=== PATIENT | male | born 1990 | race Caucasian/White ===

== ENCOUNTER 2018-02-19 13:49 | Inpatient (IN) ==
--- NOTE | 2018-02-19 14:03 | ED ---
Triage General Time Seen by Provider: 02/19/18 14:02 History of Present Illness HPI narrative: 27 y/o male complaining of suicidal and homicidal thoughts for one day. Reports he ran out of his xanax last month. Seen at triage desk awaiting bed placement. Allergies Allergies Allergy/AdvReac Type Severity Reaction Status Date / Time No Known Allergies Allergy Uncoded 10/23/12 13:31 Vital Signs Recall Vital Signs: Initial Documented Vital Signs Temperature 98.3 F 02/19/18 13:59 Pulse Rate 68 02/19/18 13:59 Respiratory Rate 14 02/19/18 13:59 Blood Pressure 135/65 02/19/18 13:59 Pulse Oximetry 98 02/19/18 13:59 Last Documented Vital Signs Temperature 98.3 F 02/19/18 13:59 Pulse Rate 68 02/19/18 13:59 Respiratory Rate 14 02/19/18 13:59 Blood Pressure 135/65 02/19/18 13:59 Pulse Oximetry 98 02/19/18 13:59 Vital Signs 3 l l l l 02/19/18 13:59 l l 02/19/18 13:59 l l Height 162.56 cm l l Weight 54.431 kg l l BMI 20.5 l l BP 135/65 l l Blood Pressure Location l l Position Sitting l l Respiration 14 l l Pulse 68 l l Pulse Source l l Temp 98.3 F l l Temp Source Oral l l Pulse Oximetry (%) 98 l l Oxygen Delivery Method l l Oxygen Flow Rate l l Comment PMFSH Social History Social History Recent Travel in [facility] within the Last 8 Weeks: No Recent Out of Country Travel within the Last 8 Weeks: No
--- NOTE | 2018-02-19 15:15 | ED ---
HPI General Chief Complaint: Psychiatric Symptoms Stated Complaint: psych eval Time Seen by Provider: 02/20/18 10:58 Source: patient Mode of arrival: ambulatory Limitations: no limitations History of Present Illness HPI Narrative: Patient is a 27-year-old male who presents to the emergency room for evaluation. Patient reports that he has been feeling suicidal as his family member keeps on telling him that he stop using drugs. Patient reports that the only drugs he uses marijuana, reports that his family member is convinced that he is taking methamphetamines. Patient reports that he is fed up by this verbal abuse and feels suicidal. Reports that he would use a knife to commit suicide if needed. Patient denies any homicidal ideation. Patient presents to the emergency room voluntary for psychiatric evaluation. Related Data Home Medications Medication Instructions Recorded Confirmed No Known Home Medications 02/19/18 02/19/18 Previous Rx's Medication Instructions Recorded quetiapine 100 mg PO HS 15 Days #15 tab 02/23/18 Allergies Allergy/AdvReac Type Severity Reaction Status Date / Time No Known Allergies Allergy Unverified 02/19/18 14:51 Review of Systems ROS: all other systems reviewed are negative PMFSH History History Provided By: Patient Medical History Medical History Clinical neurofibromatosis (Acute) Bipolar disorder (Acute) Depression (Acute) History of anxiety (Acute) History of suicidal ideation (Acute) Legally blind (Acute) Surgical History Surgical History History of adenoidectomy (Acute) History of appendectomy (Acute) History of back surgery (Acute) History of tonsillectomy (Acute) Social History Social History Substance History: Active Abuse Second Hand Smoke Exposure: Yes Smoking Status: Heavy tobacco smoker Tobacco Type: Cigarettes How Often Do You Have a Drink Containing Alcohol: Monthly or less Recent Travel in [place] within the Last 8 Weeks: No Recent Out of Country Travel within the Last 8 Weeks: No Exam Narrative Exam Narrative: GENERAL: Well-nourished, well-developed patient. GENERAL: NAD SKIN: Focused skin assessment warm/dry. HEAD: Atraumatic. Normocephalic. EYES: Pupils equal and round. No scleral icterus. No injection or drainage. ENT: No nasal bleeding or discharge. Mucous membranes pink and moist. NECK: Trachea midline. No JVD. CARDIOVASCULAR: Regular rate and rhythm. No murmur appreciated. RESPIRATORY: No accessory muscle use. Clear to auscultation. Breath sounds equal bilaterally. GASTROINTESTINAL: Abdomen soft, non-tender, nondistended. Hepatic and splenic margins not palpable. MUSCULOSKELETAL: No obvious deformities. No clubbing. No cyanosis. No edema. NEUROLOGICAL: Awake and alert. No obvious cranial nerve deficits. Motor grossly within normal limits. Normal speech. PSYCHIATRIC: Anxious mood and affect; +SI -HI Course Initial Documented Vital Signs Temperature 98.3 F 02/19/18 13:59 Pulse Rate 68 02/19/18 13:59 Respiratory Rate 14 02/19/18 13:59 Blood Pressure 135/65 02/19/18 13:59 Pulse Oximetry 98 02/19/18 13:59 Last Documented Vital Signs Temperature 98.1 F 02/23/18 05:32 Pulse Rate 60 02/23/18 05:32 Respiratory Rate 16 02/23/18 05:32 Blood Pressure 116/65 02/23/18 05:32 Pulse Oximetry 94 L 02/23/18 05:32 Sign Out Sign Out Data: Patient Sign Out occurred on 02/19/18 at 18:19. Patient's care was discussed, and care was transferred from Salima Bishop to Xu Mcknight MD. Sign Out Comment: patient pending lab work and psych screening Last updated by Salima Bishop at 02/19/18 16:53 Medical Decision Making MDM Narrative Medical decision making narrative: Psychiatric screening labs were ordered, once medically cleared, will have patient seen by psychiatric screeners Medical Screen Exam Complete: Yes Emergency Medical Condition: Yes Differential Diagnosis Differential Diagnosis: depression, suicidal idealation, drug abuse, bipolar disorder Medical Records Medical records reviewed: Yes I reviewed the patient's medical records. Lab Data Lab results reviewed: Yes I reviewed the patient's lab results. Lab results narrative: There is mild elevation in BUN creatinine. Urine drug screen shows cannabinoids. There is no alcohol or drugs otherwise. TSH is normal. The patient is medically clear for evaluation by psychiatry service. I do not believe the presentation is consistent with symptoms organic disease or acute medical abnormality. Result diagrams: 02/19/18 15:48 02/21/18 05:56 Lab Results 02/19/18 02/19/18 02/19/18 Range/Units 15:48 15:48 16:04 WBC 8.3 (4.0-11.0) th/mm3 RBC 4.77 (4.50-5.90) mil/mm3 Hgb 14.8 (13.0-17.0) gm/dL Hct 43.1 (39.0-51.0) % MCV 90.3 (80.0-100.0) fL MCH 31.0 (27.0-34.0) pg MCHC 34.3 (32.0-36.0) % RDW 13.9 (11.6-17.2) % Plt Count 120 L (150-450) th/mm3 MPV 10.4 (7.0-11.0) fL Neut % (Auto) 66.7 (16.0-70.0) % Lymph % (Auto) 23.3 (9.0-44.0) % [place] % (Auto) 6.4 (0.0-8.0) % Eos % (Auto) 3.0 (0.0-4.0) % Baso % (Auto) 0.6 (0.0-2.0) % Neut # (Auto) 5.5 (1.8-7.7) th/mm3 Lymph # (Auto) 1.9 (1.0-4.8) th/mm3 [place] # (Auto) 0.5 (0.0-0.9) th/mm3 Eos # (Auto) 0.2 (0.0-0.4) th/mm3 Baso # (Auto) 0.0 (0.0-0.2) th/mm3 WBC Differential . Differential Comment Auto diff final Sodium 141 (136-145) meq/L Potassium 3.6 (3.5-5.1) meq/L Chloride 108 H (98-107) meq/L Carbon Dioxide 25.2 (21.0-32.0) meq/L Anion Gap 8 (5-15) meq/L BUN 20 H (7-18) mg/dL Creatinine 0.80 (0.60-1.30) mg/dL Estimated GFR Greater than 89 (>89) mL/min Random Glucose 72 L (74-106) mg/dL Hemoglobin A1c (4.3-6.0) % Calcium 8.5 (8.5-10.1) mg/dL Total Bilirubin 0.6 (0.2-1.0) mg/dL AST 14 L (15-37) U/L ALT 25 (12-78) U/L Alkaline Phosphatase 78 (45-117) U/L Total Protein 6.9 (6.4-8.2) g/dL Albumin 4.0 (3.4-5.0) g/dL Triglycerides (42-150) mg/dL Cholesterol (120-200) mg/dL LDL Cholesterol, Calc (0-99) mg/dL HDL Cholesterol (40.0-60.0) mg/dL Cholesterol/HDL Ratio Ratio TSH 1.200 (0.358-3.740) uIU/mL Urine Opiates Screen Neg (Neg) Ur Barbiturates Screen Neg (Neg) Ur Amphetamines Screen Neg (Neg) U Benzodiazepines Scrn Neg (Neg) Urine Cocaine Screen Neg (Neg) U Cannabinoids Screen Pos H (Neg) Serum Alcohol Less than 3 (0-5) mg/dL 02/21/18 02/21/18 Range/Units 05:56 05:56 WBC (4.0-11.0) th/mm3 RBC (4.50-5.90) mil/mm3 Hgb (13.0-17.0) gm/dL Hct (39.0-51.0) % MCV (80.0-100.0) fL MCH (27.0-34.0) pg MCHC (32.0-36.0) % RDW (11.6-17.2) % Plt Count (150-450) th/mm3 MPV (7.0-11.0) fL Neut % (Auto) (16.0-70.0) % Lymph % (Auto) (9.0-44.0) % [place] % (Auto) (0.0-8.0) % Eos % (Auto) (0.0-4.0) % Baso % (Auto) (0.0-2.0) % Neut # (Auto) (1.8-7.7) th/mm3 Lymph # (Auto) (1.0-4.8) th/mm3 [place] # (Auto) (0.0-0.9) th/mm3 Eos # (Auto) (0.0-0.4) th/mm3 Baso # (Auto) (0.0-0.2) th/mm3 WBC Differential Differential Comment Sodium 142 (136-145) meq/L Potassium 3.5 (3.5-5.1) meq/L Chloride 105 (98-107) meq/L Carbon Dioxide 27.5 (21.0-32.0) meq/L Anion Gap 10 (5-15) meq/L BUN 18 (7-18) mg/dL Creatinine 0.79 (0.60-1.30) mg/dL Estimated GFR Greater than 89 (>89) mL/min Random Glucose 78 (74-106) mg/dL Hemoglobin A1c 5.1 (4.3-6.0) % Calcium 8.9 (8.5-10.1) mg/dL Total Bilirubin (0.2-1.0) mg/dL AST (15-37) U/L ALT (12-78) U/L Alkaline Phosphatase (45-117) U/L Total Protein (6.4-8.2) g/dL Albumin (3.4-5.0) g/dL Triglycerides 82 (42-150) mg/dL Cholesterol 147 (120-200) mg/dL LDL Cholesterol, Calc 85 (0-99) mg/dL HDL Cholesterol 45.7 (40.0-60.0) mg/dL Cholesterol/HDL Ratio 3.21 Ratio TSH (0.358-3.740) uIU/mL Urine Opiates Screen (Neg) Ur Barbiturates Screen (Neg) Ur Amphetamines Screen (Neg) U Benzodiazepines Scrn (Neg) Urine Cocaine Screen (Neg) U Cannabinoids Screen (Neg) Serum Alcohol (0-5) mg/dL Discharge Plan Discharge Disposition Patient Disposition: 07 Against Medical Advice Discharge Order Discharge Orders: AMA Discharge (Routine); Ordered 02/23/18 Ordered By: Jl Aldridge Discharge Details Anticipated Discharge Date: 02/23/18 Physicians Team ED Provider: Xu Mcknight Primary Care Provider: Primary Care Martha Eric Attending Provider: Jl Aldridge Status ED Status: Left Department Discharge Information Discharge Date/Time: 02/23/18 14:13
[2018-02-19 17:10] LABS: Baso % (Auto) 0.6 % (0.0-2.0); Eos # (Auto) 0.2 th/mm3 (0.0-0.4); Hematocrit 43.1 % (39.0-51.0); Hemoglobin 14.8 gm/dL (13.0-17.0); Lymph # (Auto) 1.9 th/mm3 (1.0-4.8); Lymph % (Auto) 23.3 % (9.0-44.0); Mean Corpuscular HGB Conc 34.3 % (32.0-36.0); Mean Corpuscular Volume 90.3 fL (80.0-100.0); Mean Platelet Volume 10.4 fL (7.0-11.0); Mono # (Auto) 0.5 th/mm3 (0.0-0.9); Mono % (Auto) 6.4 % (0.0-8.0); Neut # (Auto) 5.5 th/mm3 (1.8-7.7); Neut % (Auto) 66.7 % (16.0-70.0); Platelet Count 120 th/mm3 (150-450); Red Blood Count 4.77 mil/mm3 (4.50-5.90); Red Cell Distribution Width 13.9 % (11.6-17.2); White Blood Count 8.3 th/mm3 (4.0-11.0)
[2018-02-19 17:11] LABS: Amphetamine Screen,Urine Neg (Neg); Barbiturate Screen,Urine Neg (Neg); Cannabinoid Screen,Urine Pos (Neg); Cocaine Screen,Urine Neg (Neg)
[2018-02-19 17:13] LABS: Opiate Screen,Urine Neg (Neg)
[2018-02-19 17:30] LABS: Anion Gap 8 meq/L (5-15); Aspartate Aminotransferase 14 U/L (15-37); Blood Urea Nitrogen 20 mg/dL (7-18); Calcium 8.5 mg/dL (8.5-10.1); Carbon Dioxide 25.2 meq/L (21.0-32.0); Chloride 108 meq/L (98-107); Glomerular Filtration Rate Greater Than 89 mL/min (>89); Glucose,Random 72 mg/dL (74-106); Potassium 3.6 meq/L (3.5-5.1); Sodium 141 meq/L (136-145)
[2018-02-19 17:31] LABS: Alanine Aminotransferase 25 U/L (12-78)
[2018-02-19 17:41] LABS: Alkaline Phosphatase 78 U/L (45-117); Total Protein 6.9 g/dL (6.4-8.2)
[2018-02-20] MEDS ORDERED: Bisacodyl 10 MG Supp RECTAL PRN (11:07)
[2018-02-20] MEDS ORDERED: Aluminum/Magnesium/Simethacone Susp 30 ML UDC PO PRN (11:07)
[2018-02-20] MEDS ORDERED: Acetaminophen 325 MG Tablet PO PRN (11:07)
--- NOTE | 2018-02-20 15:45 | ED ---
HPI - Psych - General Source: patient Mode of arrival: ambulatory Limitations: other (Legally blind) - History of Present Illness complaint: other (Homicidal ideation) Onset (ago): day(s) Duration: constant History of same: No Relieving factors: medication Exacerbating factors: other (Lack of medication) Context: significant life stressor - General Chief Complaint: Psychiatric Symptoms Stated Complaint: psych eval Time Seen by Provider: 02/20/18 10:58 - History of Present Illness HPI Narrative: This is a 27 year old legally blind, single, male who presents voluntarily to this facility for self-reported suicidal and homicidal ideation. Patient is known to the psychiatric facility however, his last inpatient admission was in 2011. Reviewed electronic medical records, labs, and discussed case with staff. Patient's toxicology screen is positive for cannabinoids. His evaluation was performed in [facility]. He is awake, alert, and oriented 4. His speech is clear, logical, organized, of normal ruddy and volume. At the time of the examination he denied suicidal ideation but endorsed homicidal ideation. He reports that he wants to kill his cousin whom he lives with and states that he would "cut her jugular". He also reports intermittent auditory hallucinations but denies visual hallucinations. I can elicit no delusional material. He does not appear to be psychotic or manic at this time. I see no indication of internal stimulation or thought blocking. Mood is good his affect is euthymic. He does continues to endorse that if discharged he fears he will kill his cousin. Patient reports that he lives in a duplex with his cousin. He states that they argue frequently and reports that she has been "getting on me about doing hard drugs but all I do is smoke marijuana". He reports a previous suicide attempt in 2008 where he took 21 Lexapro. He denies any previous homicide attempts. Additionally, he reports that he has been treated for bipolar disorder via tele- psychiatry and was prescribed Xanax 2 mg and Seroquel 300 mg. His [facility] psychiatrist has recently explained to him that due to changes in the log is unable to provide him with the Xanax. Patient states that he has had increasing anxiety and irritability due to this. I explained to him that it was highly unlikely he would be prescribed Xanax at this facility. He reports previous inpatient admissions for mental health here and at [facility]. He denies any familial suicide attempts but states that mental illness is pervasive in his family. 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 (Mindy Brownlee) - Related Data Home Medications Medication Instructions Recorded Confirmed No Known Home Medications 02/19/18 02/19/18 Allergies Allergy/AdvReac Type Severity Reaction Status Date / Time No Known Allergies Allergy Unverified 02/19/18 14:51 Review of Systems All other systems reviewed negative except as stated in [facility] - History History Provided By: Patient - Medical History Medical History: Medical History (Last Reviewed 02/20/18 @ 16:19 by BRISEIDA Boone) Depression History of anxiety History of suicidal ideation Legally blind Bipolar disorder - Surgical History Surgical History: Surgical History (Last Reviewed 02/20/18 @ 16:19 by BRISEIDA Boone) History of adenoidectomy History of appendectomy History of back surgery History of tonsillectomy - Tobacco History Tobacco Use In Past 30 Days: Yes Smoking Status: Current every day smoker Tobacco Type: Cigarettes - Alcohol History How Often Do You Have a Drink Containing Alcohol: Monthly or less - Substance Use History Substance History: Past History - Travel History Recent Travel in the [place] Within the Last 8 Weeks: No Recent Travel Out of the Country Within the Last 8 Weeks: No - Immunization History Tetanus Immunization: Unable to Assess Hx Influenza Vaccine This Season: No Psychiatric History - Psychiatric History Psychiatric Treatment History: History of Psychiatric Treatment, Denies Previous Treatment History of Inpatient Treatment: Yes Firearms in Home: No - Psychiatric History Inpatient admissions at this facility and start . Reported that he was receiving prescriptions for Xanax and Seroquel from a tele-psychiatrist. States that he only took the Seroquel intermittently because he "did not like it ". However, it appears he had no such qualms in taking the Xanax. (Mindy Brownlee) - Family Psychiatric History Denies family suicide attempts reports a pervasive mental health history throughout the family. (Mindy Brownlee) Physical Exam - General Limitations: no limitations General appearance: alert, in no apparent distress - Head Head exam: atraumatic - Psychiatric Psychiatric exam: Present: normal affect, normal mood Mental Status Examination Appearance: Appropriate Consciousness: Alert Orientation: x4 Motor Activity: Normal gait Speech: Unremarkable Language: Adequate Fund of Knowledge: Adequate Attention and Concentration: Adequate Memory: Unremarkable Mood: Appropriate, Good Affect: Appropriate, Euthymic Thought Process & Associations: Intact, Logical Thought Content: Appropriate Hallucination Type: None Delusion Type: None Suicidal Ideation: No Suicidal Plan: No Suicidal Intention: No Homicidal Ideation: No Homicidal Plan: No Homicidal Intention: No Insight: Poor Judgment: Impulsive Initial Documented Vital Signs Temperature 98.3 F 02/19/18 13:59 Pulse Rate 68 02/19/18 13:59 Respiratory Rate 14 02/19/18 13:59 Blood Pressure 135/65 02/19/18 13:59 Pulse Oximetry 98 02/19/18 13:59 Last Documented Vital Signs Temperature 98.3 F 02/19/18 13:59 Pulse Rate 55 L 02/20/18 10:30 Respiratory Rate 19 02/20/18 10:30 Blood Pressure 130/71 02/20/18 10:30 Pulse Oximetry 99 02/20/18 10:30 MDM - Psych - Diagnosis (1) Bipolar disorder Status: Acute - Lab Data Result diagrams: 02/19/18 15:48 02/19/18 15:48 - MDM Narrative Medical decision making narrative: Given the patient's extensive past mental health history and his strong endorsement of homicidal ideation I have opted to admit him to a locked inpatient psychiatric unit for further evaluation and treatment as deemed necessary. Due to his blindness he was verbally consented with the witness present and is being admitted voluntarily to the unit. (Mindy Brownlee) - Lab Data Lab Results 02/19/18 02/19/18 02/19/18 Range/Units 15:48 15:48 16:04 WBC 8.3 (4.0-11.0) th/mm3 RBC 4.77 (4.50-5.90) mil/mm3 Hgb 14.8 (13.0-17.0) gm/dL Hct 43.1 (39.0-51.0) % MCV 90.3 (80.0-100.0) fL MCH 31.0 (27.0-34.0) pg MCHC 34.3 (32.0-36.0) % RDW 13.9 (11.6-17.2) % Plt Count 120 L (150-450) th/mm3 MPV 10.4 (7.0-11.0) fL Neut % (Auto) 66.7 (16.0-70.0) % Lymph % (Auto) 23.3 (9.0-44.0) % [place] % (Auto) 6.4 (0.0-8.0) % Eos % (Auto) 3.0 (0.0-4.0) % Baso % (Auto) 0.6 (0.0-2.0) % Neut # (Auto) 5.5 (1.8-7.7) th/mm3 Lymph # (Auto) 1.9 (1.0-4.8) th/mm3 [place] # (Auto) 0.5 (0.0-0.9) th/mm3 Eos # (Auto) 0.2 (0.0-0.4) th/mm3 Baso # (Auto) 0.0 (0.0-0.2) th/mm3 WBC Differential . Differential Comment Auto diff final Sodium 141 (136-145) meq/L Potassium 3.6 (3.5-5.1) meq/L Chloride 108 H (98-107) meq/L Carbon Dioxide 25.2 (21.0-32.0) meq/L Anion Gap 8 (5-15) meq/L BUN 20 H (7-18) mg/dL Creatinine 0.80 (0.60-1.30) mg/dL Estimated GFR Greater than 89 (>89) mL/min Random Glucose 72 L (74-106) mg/dL Calcium 8.5 (8.5-10.1) mg/dL Total Bilirubin 0.6 (0.2-1.0) mg/dL AST 14 L (15-37) U/L ALT 25 (12-78) U/L Alkaline Phosphatase 78 (45-117) U/L Total Protein 6.9 (6.4-8.2) g/dL Albumin 4.0 (3.4-5.0) g/dL TSH 1.200 (0.358-3.740) uIU/mL Urine Opiates Screen Neg (Neg) Ur Barbiturates Screen Neg (Neg) Ur Amphetamines Screen Neg (Neg) U Benzodiazepines Scrn Neg (Neg) Urine Cocaine Screen Neg (Neg) U Cannabinoids Screen Pos H (Neg) Serum Alcohol Less than 3 (0-5) mg/dL
[2018-02-20] MEDS: Senna/Docusate Sodium 8.6/50 MG Tablet PO SCH (20:57)
[2018-02-21 07:46] LABS: Anion Gap 10 meq/L (5-15); Blood Urea Nitrogen 18 mg/dL (7-18); Calcium 8.9 mg/dL (8.5-10.1); Carbon Dioxide 27.5 meq/L (21.0-32.0); Chloride 105 meq/L (98-107); Glomerular Filtration Rate Greater Than 89 mL/min (>89); Glucose,Random 78 mg/dL (74-106); Potassium 3.5 meq/L (3.5-5.1); Sodium 142 meq/L (136-145)
[2018-02-21 07:47] LABS: Cholesterol 147 mg/dL (120-200)
[2018-02-21 07:50] LABS: Chol/HDL Ratio 3.21 Ratio; HDL Cholesterol 45.7 mg/dL (40.0-60.0); LDL Cholesterol,Calculated 85 mg/dL (0-99); Triglycerides 82 mg/dL (42-150)
[2018-02-21] MEDS: Senna/Docusate Sodium 8.6/50 MG Tablet PO SCH (08:39)
[2018-02-21 12:10] LABS: Hemoglobin A1c 5.1 % (4.3-6.0)
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
[2018-02-21] MEDS ORDERED: Baclofen 10 MG Tablet PO PRN (16:00)
[2018-02-21] MEDS ORDERED: QUEtiapine 25 MG Tablet PO SCH (21:00)
--- NOTE | 2018-02-22 13:56 | P.PNPSY ---
Subjective Chief Complaint: Homicidal ideation Remarks: Patient seen and examined with nurse. Chart reviewed. Case discussed with nursing staff. No behavioral issues noted overnight. On my examination today, the patient reports that his violent ideation directed against his cousin is decreasing. He also says that he spoke with his grandmother and will be staying with his grandmother after discharge so that he does not have to interact with cousin. He continues to complain of somewhat poor sleep and would like to titrate his Seroquel. Affect is fairly euthymic. Denies side effects from medications. No physical complaints. Vital Signs Temp Pulse Resp BP Pulse Ox 02/22/18 07:22 98.1 F 61 16 110/58 L 95 02/22/18 06:00 98.1 F 61 16 110/58 L 95 Intake and Output 02/22/18 02/22/18 02/22/18 06:59 14:59 22:59 Other: Weight 55.3 kg Labs reviewed. No new labs. EKG reveals sinus bradycardia with normal QTc. Review of Systems All other systems reviewed negative except as stated in HPI Mental Status Examination Appearance: Appropriate Consciousness: Alert Orientation: Person, Place (At least) Motor Activity: Other (No abnormal motor movements noted) Speech: Unremarkable Language: Adequate Fund of Knowledge: Adequate Attention and Concentration: Adequate Memory: Unremarkable (Grossly intact on clinical exam) Mood: Appropriate Affect: Appropriate Thought Process & Associations: Intact Thought Content: Appropriate Hallucination Type: None Delusion Type: None Suicidal Ideation: No Suicidal Plan: No Suicidal Intention: No Homicidal Ideation: Yes (Towards cousin, decreasing) Homicidal Plan: No Homicidal Intention: No Insight: Fair Judgment: Impulsive Assessment and Plan - Assessment (1) Adjustment disorder with mixed disturbance of emotions and conduct Code(s): F43.25 - Adjustment disorder with mixed disturbance of emotions and conduct Status: Acute (2) History of bipolar disorder Code(s): Z86.59 - Personal history of other mental and behavioral disorders Status: Acute (3) History of substance use disorder Code(s): Z87.898 - Personal history of other specified conditions Status: Acute - Plan Plan: Titrate Seroquel to 100 mg at bedtime. Continue to monitor on the inpatient unit. Continue other medications and care as ordered. Justification for Continued Inpatient Stay: Medication changes. Monitoring for impairment in safety. Risk for decompensation in less restrictive environment. Discharge Planning: Pending psychiatric stabilization. Anticipate discharge possibly after the weekend. Request Healthcare Surrogate/Guardian Advocate?: No
--- NOTE | 2018-02-22 17:19 | ECG ---
Date Performed: 02/21/2018 Time Performed: 13:34:58 PTAGE: 27 years EKG: SINUS BRADYCARDIA BORDERLINE ECG NO PREVIOUS TRACING DOCTOR: Trever Calvillo Interpretating Date/Time 02/22/2018 17:16:39
[2018-02-22] MEDS ORDERED: QUEtiapine 100 MG Tablet PO SCH (21:00)
[2018-02-23 05:33] VITALS: BP 116/65; PULSE 60; RESP 16; TEMP 98.1; O2SAT 94
--- NOTE | 2018-02-23 12:39 | P.TTN ---
- Patient Problems Problems: 1. Discharge planning 2. Medication compliance 3. Knowledge deficit 4. Lack of coping skills - Progress Toward Goals Provider Present: Dr. Marlen Aldridge (Increase seroquel. Pt. will d/c on monday.) Psychiatric Counselors Present: Shyann Fernandes LCSW (Pt. has social issues at home. Pt. is talkative and anxious.) Group Spec/RT/OT/ALONSO Present: GAVIN Pierce (Pt. attends many group. Pt. is limited.) - Documentation Teaching Recipient: Patient
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
== END 2018-02-23 15:00 | disposition left against medical advice (07) ==
LOC: NEPD 13:49 → NEDA 02-20 11:15 → H260 02-20 14:31
PROVIDERS: ADMIT Psychiatry & Neurology Psychiatry; ATTEND Psychiatry & Neurology Psychiatry